=== PATIENT | female | born 1990 | race Caucasian/White ===

== ENCOUNTER 2022-07-27 14:34 | Emergency (ER) | payer MEDICAID ==
[~2022-07-27] VITALS: Ht 162.6 cm; Wt 95.0 kg
[2022-07-27] MEDS ORDERED: METOCLOPRAMIDE HCL 10MG TABLET PO ONE (15:30)
[2022-07-27] MEDS ORDERED: ACETAMINOPHEN 325MG TABLET PO ONE (15:30)
[2022-07-27] MEDS ORDERED: DIPHENHYDRAMINE 25MG CAPSULE PO ONE (15:30)
[2022-07-27] MEDS ORDERED: METO-293 MT (17:29)
[2022-07-27] MEDS ORDERED: ACET-2708 MT (17:29)
[2022-07-27 17:52] VITALS: BP 134/79
== END 2022-07-27 18:05 | disposition home or self-care (01) ==
LOC: ER 15:06
DX: G43.909 Migraine, unspecified, not intractable, without status migrainosus (principal); R07.89 Other chest pain; F41.9 Anxiety disorder, unspecified; Z88.2 Allergy status to sulfonamides
CPT/HCPCS: 71045; 99284; J8597; Q0163

== ENCOUNTER 2022-07-31 13:52 | Emergency (ER) | payer MEDICAID ==
[~2022-07-31] VITALS: Ht 152.4 cm; Wt 67.0 kg
[~2022-07-31 13:52] MED LIST: ACET-2708 MT; METO-293 MT
[2022-07-31 15:07] LABS: BASOPHILS % 1.1 % (0.0-2.0); EOSINOPHILS % 1.2 % (0.0-5.0); HEMATOCRIT. 35.8 % (36.0-48.0); HEMOGLOBIN. 12.1 g/dL (12.0-16.0); LYMPHOCYTES % 29.9 % (20.0-50.0); MEAN CORPUSCULAR HEMOGLOBIN 29.2 pg (28.0-32.0); MEAN CORPUSCULAR VOLUME 86.3 fL (81.0-99.0); MEAN PLATELET VOLUME 8.1 fl (7.4-10.4); MONOCYTES % 8.8 % (2.0-8.0); PLATELET 353 x1000/uL (130-400); RED BLOOD CELL COUNT 4.15 mill/uL (4.2-5.4); RED CELL DISTRIBUTION WIDTH 14.4 % (11.6-14.6)
[2022-07-31] MEDS ORDERED: LORAZEPAM 0.5MG TABLET PO ONE (15:15)
[2022-07-31 15:25] LABS: CLARITY URINE CLOUDY (CLEAR); COLOR URINE YELLOW (YELLOW); KETONES URINE TRACE (NEGATIVE); LEUKOCYTE ESTERASE URINE 2+ (NEGATIVE); NITRITE URINE NEGATIVE (NEGATIVE); OCCULT BLOOD URINE 1+ (NEGATIVE); PROTEIN URINE NEGATIVE (NEGATIVE)
[2022-07-31 15:28] LABS: HCG SCREEN NEGATIVE
[2022-07-31] MEDS ORDERED: ACETAMINOPHEN 325MG TABLET PO ONE (15:30)
[2022-07-31] MEDS ORDERED: IBUPROFEN 400MG TABLET PO ONE (15:30)
[2022-07-31 15:34] LABS: CHLORIDE 106 mEq/L (98-107)
[2022-07-31 16:04] LABS: ETHANOL BLOOD < 10 mg/dL
[2022-07-31 16:44] LABS: *AMPHETAMINES SCREEN URINE NEGATIVE (NEGATIVE); *BARBITURATES SCREEN URINE NEGATIVE (NEGATIVE); *BENZODIAZEPINES SCREEN URINE NEGATIVE (NEGATIVE); *COCAINE SCREEN URINE NEGATIVE (NEGATIVE); CANNABINOID URINE SCREEN NEGATIVE (NEGATIVE); METHADONE URINE SCREEN NEGATIVE (NEGATIVE); OPIATES URINE SCREEN NEGATIVE (NEGATIVE); PHENCYCLIDINE URINE SCREEN NEGATIVE (NEGATIVE)
[2022-07-31] MEDS: NITROFURANTOIN 100MG M/M CAPSULE PO SCH ×2 (17:30→21:00)
[2022-07-31] MEDS ORDERED: LORAZEPAM 0.5MG TABLET PO NR (18:00)
[2022-07-31] MEDS ORDERED: IBUPROFEN 400MG TABLET PO NR (18:00)
[2022-07-31] MEDS ORDERED: ACETAMINOPHEN 325MG TABLET PO NR (18:00)
[2022-08-01] MEDS: NITROFURANTOIN 100MG M/M CAPSULE PO SCH (08:56)
[2022-08-01] MEDS ORDERED: HYDROXYZINE 25MG TABLET PO PRN (12:30)
[2022-08-01] MEDS ORDERED: LORAZEPAM 1MG TABLET PO PRN (12:30)
[2022-08-01] MEDS ORDERED: DULOXETINE HCL 30MG DR CAPSULE PO SCH (12:30)
[2022-08-01 13:20] VITALS: BP 119/78
== END 2022-08-01 13:55 | disposition short-term general hospital (02) ==
LOC: ER 14:49
DX: R45.851 Suicidal ideations (principal); R44.0 Auditory hallucinations; N39.0 Urinary tract infection, site not specified; F41.9 Anxiety disorder, unspecified; F32.9 Major depressive disorder, single episode, unspecified; Z88.2 Allergy status to sulfonamides; Z20.822 Contact with and (suspected) exposure to COVID-19
CPT/HCPCS: 36415; 80053; 80305; 80307; 80320; 80329; 81003; 81025; 84703; 85025; 87086; 87426; 99285; C9803; G0480